=== PATIENT | male | born 1940 | race African-American/Black ===

== ENCOUNTER 2017-01-02 09:20 | Emergency (ER) | payer MEDICARE, MEDICAID ==
[~2017-01-02] VITALS: Ht 172.7 cm; Wt 70.0 kg
[~2017-01-02 09:20] MED LIST: TAMS0.4C32 PO
[2017-01-02] MEDS ORDERED: OxyCODONE HCL/ACETAMINOPHEN 5-325 MG TABLET PO ONE (11:30)
[2017-01-02] MEDS ORDERED: KETOROLAC TROMETHAMINE 60 MG/2 ML VIAL IM ONE (11:30)
[2017-01-02 12:51] VITALS: BP 132/84
== END 2017-01-02 14:11 | disposition home or self-care (01) ==
LOC: EMS 09:26
DX: M54.41 Lumbago with sciatica, right side (principal); E11.9 Type 2 diabetes mellitus without complications; I10 Essential (primary) hypertension; Z88.8 Allergy status to other drugs, medicaments and biological substances
CPT/HCPCS: 96372; 99283; J1885

== ENCOUNTER 2017-02-24 19:10 | Emergency (ER) | payer MEDICARE, MEDICAID ==
[~2017-02-24] VITALS: Ht 172.7 cm; Wt 63.6 kg
[2017-02-24 21:54] LABS: APPEARANCE,URINE CLEAR (CLEAR); GLUCOSE, URINE (UA) NEGATIVE (NEGATIVE); KETONES,URINE NEGATIVE (NEGATIVE); LEUKOCYTE ESTERASE ,URINE NEGATIVE (NEGATIVE); OCCULT BLOOD,URINE NEGATIVE (NEGATIVE); PROTEIN,URINE NEGATIVE (NEGATIVE)
[2017-02-24 21:56] LABS: ADD UA MICROSCOPIC NO
[2017-02-24] MEDS ORDERED: CefTRIAXone SODIUM 1 GM/VIAL IM ONE (22:00)
[2017-02-24] MEDS ORDERED: LIDOCAINE HCL/PF 1% 2 ML VIAL IM ONE (22:00)
[2017-02-24] MEDS ORDERED: AZITHROMYCIN 250 MG TABLET PO ONE (22:00)
[2017-02-24 22:04] VITALS: BP 149/88
== END 2017-02-24 22:10 | disposition home or self-care (01) ==
LOC: EMS 19:11
DX: K40.90 Unilateral inguinal hernia, without obstruction or gangrene, not specified as recurrent (principal); N50.812 Left testicular pain; N34.2 Other urethritis; E11.9 Type 2 diabetes mellitus without complications; I10 Essential (primary) hypertension; Z76.0 Encounter for issue of repeat prescription; Z91.018 Allergy to other foods
CPT/HCPCS: 81003; 96372; 99284; J0696; J3490

== ENCOUNTER 2017-04-10 20:30 | Emergency (ER) | payer MEDICARE, MEDICAID ==
[~2017-04-10] VITALS: Ht 172.7 cm; Wt 63.6 kg
[2017-04-10 21:20] LABS: APPEARANCE,URINE CLEAR (CLEAR); GLUCOSE, URINE (UA) NEGATIVE (NEGATIVE); KETONES,URINE TRACE mg/dL (NEGATIVE); LEUKOCYTE ESTERASE ,URINE NEGATIVE (NEGATIVE); OCCULT BLOOD,URINE NEGATIVE (NEGATIVE); PROTEIN,URINE NEGATIVE (NEGATIVE)
[2017-04-10 21:22] LABS: ADD UA MICROSCOPIC NO
[2017-04-11] MEDS ORDERED: HYDROCODONE/ACETAMINOPHEN 5-325 MG TABLET PO ONE (01:00)
[2017-04-11 01:33] VITALS: BP 154/87
== END 2017-04-11 01:40 | disposition home or self-care (01) ==
LOC: EMS 20:34
DX: M54.5 Low back pain (principal); G89.29 Other chronic pain; H92.09 Otalgia, unspecified ear; E11.9 Type 2 diabetes mellitus without complications; I10 Essential (primary) hypertension; Z95.0 Presence of cardiac pacemaker; Z91.018 Allergy to other foods
CPT/HCPCS: 99283

== ENCOUNTER 2017-04-18 18:31 | Emergency (ER) | payer MEDICARE, MEDICAID ==
[~2017-04-18] VITALS: Ht 172.7 cm; Wt 67.3 kg
[2017-04-18] MEDS ORDERED: TRAM50TA4 PO (18:43)
[2017-04-18] MEDS: HYDROCODONE/ACETAMINOPHEN 10-325 MG TABLET PO ONE (19:30)
[2017-04-18 20:15] VITALS: BP 149/83
== END 2017-04-18 20:18 | disposition home or self-care (01) ==
LOC: EMS 18:32
DX: G89.29 Other chronic pain (principal); M54.5 Low back pain; I10 Essential (primary) hypertension; E11.9 Type 2 diabetes mellitus without complications; M79.606 Pain in leg, unspecified
CPT/HCPCS: 99283

== ENCOUNTER 2017-05-01 11:07 | Emergency (ER) | payer MEDICARE, MEDICAID ==
[~2017-05-01] VITALS: Ht 172.7 cm; Wt 68.2 kg
[~2017-05-01 11:07] MED LIST changes: +TRAM50TA4 PO
[2017-05-01 13:59] VITALS: BP 160/76
== END 2017-05-01 14:03 | disposition home or self-care (01) ==
LOC: EMS 11:09
DX: Z00.00 Encounter for general adult medical examination without abnormal findings (principal); Z02.89 Encounter for other administrative examinations; F11.10 Opioid abuse, uncomplicated; E11.9 Type 2 diabetes mellitus without complications; I10 Essential (primary) hypertension; Z91.018 Allergy to other foods
CPT/HCPCS: 71020; 99284

== ENCOUNTER 2017-05-23 09:53 | Emergency (ER) | payer MEDICARE, MEDICAID ==
[~2017-05-23] VITALS: Ht 172.7 cm; Wt 69.5 kg
[2017-05-23 11:47] VITALS: BP 134/89
[2017-05-23 11:51] LABS: APPEARANCE,URINE CLEAR (CLEAR); GLUCOSE, URINE (UA) NEGATIVE (NEGATIVE); KETONES,URINE NEGATIVE (NEGATIVE); LEUKOCYTE ESTERASE ,URINE NEGATIVE (NEGATIVE); OCCULT BLOOD,URINE NEGATIVE (NEGATIVE); PROTEIN,URINE NEGATIVE (NEGATIVE)
[2017-05-23 12:03] LABS: ADD UA MICROSCOPIC NO
[2017-05-23] MEDS ORDERED: LEVOFLOXACIN 500 MG TABLET PO ONE (12:30)
== END 2017-05-23 12:43 | disposition home or self-care (01) ==
LOC: EMS 09:55
DX: N34.2 Other urethritis (principal); B86 Scabies; E11.9 Type 2 diabetes mellitus without complications; I10 Essential (primary) hypertension; Z95.0 Presence of cardiac pacemaker; Z91.018 Allergy to other foods
CPT/HCPCS: 99283

== ENCOUNTER 2017-06-15 19:54 | Emergency (ER) | payer MEDICARE, MEDICAID ==
[~2017-06-15] VITALS: Ht 172.7 cm; Wt 70.0 kg
[2017-06-15] MEDS ORDERED: KETOROLAC TROMETHAMINE 60 MG/2 ML VIAL IM ONE (21:00)
[2017-06-15 21:26] VITALS: BP 148/94
== END 2017-06-15 21:30 | disposition home or self-care (01) ==
LOC: EMS 19:57
DX: M62.830 Muscle spasm of back (principal); G89.29 Other chronic pain; E11.9 Type 2 diabetes mellitus without complications; I10 Essential (primary) hypertension; Z95.0 Presence of cardiac pacemaker; Z91.018 Allergy to other foods
CPT/HCPCS: 99282; J1885

== ENCOUNTER 2018-12-25 20:26 | Emergency (ER) | payer MEDICAID, MEDICARE ==
[~2018-12-25] VITALS: Ht 172.7 cm; Wt 60.9 kg
[2018-12-25] MEDS ORDERED: CLON-570 PO (20:35)
[2018-12-25] MEDS ORDERED: GABA-529 PO (20:35)
[2018-12-25] MEDS ORDERED: HYDR-4031 PO (20:35)
[2018-12-25] MEDS ORDERED: TAMS0.4C32 PO (20:35)
[2018-12-25 20:53] LABS: GLUCOSE,POINT OF CARE 96 MG/DL (70-110)
[2018-12-25] MEDS ORDERED: CloNIDine HCL 0.2 MG TABLET PO ONE (21:45)
[2018-12-25] MEDS ORDERED: HYDROCODONE/ACETAMINOPHEN 5-325 MG TABLET PO ONE (21:45)
[2018-12-25 22:03] LABS: BASOPHILS % (AUTO) 0.4 % (0.0-2.0); EOSINOPHILS % (AUTO) 0.6 % (1.0-6.0); HEMATOCRIT 38.9 % (41-53); LYMPHOCYTES # (AUTO) 1.7 K/uL (1.0-4.8); LYMPHOCYTES % (AUTO) 26.4 % (22.0-44.0); MEAN CORPUSCULAR HEMOGLOBIN 30.9 pg (26.0-34.0); MEAN CORPUSCULAR HGB CONC 33.4 G/dL (31.0-37.0); MEAN CORPUSCULAR VOLUME 93 fL (80-100); MONOCYTES # (AUTO) 0.7 K/uL (0.1-1.0); MONOCYTES % (AUTO) 10.5 % (2.0-9.0); NEUTROPHILS # (AUTO) 4.1 K/uL (1.8-7.7); NEUTROPHILS % (AUTO) 62.1 % (40.0-70.0); PLATELET COUNT (AUTO) 212 K/uL (150-450); RED CELL DISTRIBUTION WIDTH 14.9 % (11.5-14.5)
[2018-12-25 22:17] LABS: ANION GAP 7 mmol/L (8-16); CALCIUM, TOTAL 8.7 mg/dL (8.8-10.5); CARBON DIOXIDE 27 mmol/L (22-29); CHLORIDE 107 mmol/L (98-107); CREATININE 0.95 mg/dL (0.60-1.30); GLUCOSE,RANDOM 118 mg/dL (70-110); POTASSIUM 3.5 mmol/L (3.5-5.1); SODIUM SERUM 141 mmol/L (136-145); UREA NITROGEN, BLOOD 21 mg/dL (7-18)
[2018-12-25 22:22] LABS: GLOMERULAR FILTR. RATE CALC > 60 mL/min (>60)
[2018-12-25 22:51] LABS: ALANINE AMINOTRANSFERASE 58 U/L (12-78); ALBUMIN 2.9 g/dL (3.4-5.0); ALKALINE PHOSPHATASE 82 U/L (46-116); ASPARTATE AMINOTRANSFERASE 56 U/L (15-37); BILIRUBIN,TOTAL 0.4 mg/dL (0.1-1.0); TOTAL PROTEIN, SERUM 7.2 g/dL (6.4-8.2)
[2018-12-26] MEDS ORDERED: KETOROLAC TROMETHAMINE 60 MG/2 ML VIAL IM ONE (00:45)
[2018-12-26 01:13] VITALS: BP 161/88
== END 2018-12-26 01:15 | disposition home or self-care (01) ==
LOC: EMS 20:27
DX: G89.29 Other chronic pain (principal); M54.2 Cervicalgia; I10 Essential (primary) hypertension; E11.9 Type 2 diabetes mellitus without complications; Z88.8 Allergy status to other drugs, medicaments and biological substances; Z79.899 Other long term (current) drug therapy
CPT/HCPCS: 36415; 80053; 82962; 84484; 85025; 96372; 99283; J1885

== ENCOUNTER 2019-02-05 00:01 | Emergency (ER) | payer MEDICARE, MEDICAID ==
[~2019-02-05] VITALS: Ht 172.7 cm; Wt 60.9 kg
[~2019-02-05 00:01] MED LIST changes: +CLON-570 PO; +GABA-529 PO; +HYDR-4031 PO; -TRAM50TA4 PO
[2019-02-05 03:29] VITALS: BP 158/89
== END 2019-02-05 03:47 | disposition home or self-care (01) ==
LOC: EMS 00:01
DX: M54.2 Cervicalgia (principal); M54.9 Dorsalgia, unspecified; F11.20 Opioid dependence, uncomplicated; E11.9 Type 2 diabetes mellitus without complications; I10 Essential (primary) hypertension; F12.90 Cannabis use, unspecified, uncomplicated; Z79.899 Other long term (current) drug therapy; Z91.018 Allergy to other foods; Z59.0 Homelessness

== ENCOUNTER 2019-02-09 11:15 | Emergency (ER) | payer MEDICARE, MEDICAID ==
[~2019-02-09] VITALS: Ht 162.6 cm; Wt 59.1 kg
[2019-02-09 13:27] LABS: APPEARANCE,URINE CLEAR (CLEAR); BILIRUBIN,URINE NEGATIVE (NEGATIVE); GLUCOSE, URINE (UA) NEGATIVE (NEGATIVE); KETONES,URINE NEGATIVE (NEGATIVE); LEUKOCYTE ESTERASE ,URINE NEGATIVE (NEGATIVE); NITRATE,URINE NEGATIVE (NEGATIVE); OCCULT BLOOD,URINE TRACE (NEGATIVE); PROTEIN,URINE NEGATIVE (NEGATIVE)
[2019-02-09 13:45] LABS: BACTERIA,URINE None Seen /HPF (None Seen); SQUAMOUS EPITHELIAL CELL,UR Rare /LPF (None Seen); WBC,URINE None Seen /HPF (0-5)
[2019-02-09 14:46] VITALS: BP 125/81
== END 2019-02-09 14:51 | disposition home or self-care (01) ==
LOC: EMS 11:16
DX: R33.9 Retention of urine, unspecified (principal); R10.30 Lower abdominal pain, unspecified; F11.20 Opioid dependence, uncomplicated; E11.9 Type 2 diabetes mellitus without complications; I10 Essential (primary) hypertension; I49.9 Cardiac arrhythmia, unspecified; G89.29 Other chronic pain; F12.90 Cannabis use, unspecified, uncomplicated; Z95.0 Presence of cardiac pacemaker; Z79.899 Other long term (current) drug therapy; Z91.018 Allergy to other foods
CPT/HCPCS: 51702; 74176

== ENCOUNTER 2019-05-08 19:56 | Emergency (ER) | payer MEDICARE, MEDICAID ==
[~2019-05-08] VITALS: Ht 172.7 cm; Wt 60.5 kg
[2019-05-08 22:21] VITALS: BP 135/72
[2019-05-08] MEDS ORDERED: IBUPROFEN 600 MG TABLET PO ONE (22:45)
[2019-05-08] MEDS ORDERED: AMOX TR/POT CLAV 875 MG/125 MG TABLET PO ONE (22:45)
== END 2019-05-08 23:33 | disposition home or self-care (01) ==
LOC: EMS 20:00
DX: M79.641 Pain in right hand (principal); M79.10 Myalgia, unspecified site; R68.2 Dry mouth, unspecified; E11.9 Type 2 diabetes mellitus without complications; I10 Essential (primary) hypertension; F12.90 Cannabis use, unspecified, uncomplicated; F11.90 Opioid use, unspecified, uncomplicated; Z79.899 Other long term (current) drug therapy; Z91.018 Allergy to other foods

== ENCOUNTER 2019-05-09 22:14 | Emergency (ER) | payer MEDICARE, MEDICAID ==
[~2019-05-09] VITALS: Ht 172.7 cm; Wt 59.1 kg
[2019-05-10 03:00] VITALS: BP 149/77
== END 2019-05-10 03:26 | disposition home or self-care (01) ==
LOC: EMS 22:15
DX: R39.81 Functional urinary incontinence (principal); E11.9 Type 2 diabetes mellitus without complications; I10 Essential (primary) hypertension; G89.29 Other chronic pain; M54.9 Dorsalgia, unspecified; F11.90 Opioid use, unspecified, uncomplicated; F12.90 Cannabis use, unspecified, uncomplicated; Z91.018 Allergy to other foods; Z95.0 Presence of cardiac pacemaker

== ENCOUNTER 2019-12-25 19:52 | Emergency (ER) | payer MEDICARE, MEDICAID ==
[~2019-12-25] VITALS: Ht 172.7 cm; Wt 58.8 kg
[~2019-12-25 19:52] MED LIST changes: -CLON-570 PO; +CLON0.1T83 PO; +TAMS-13 PO; -TAMS0.4C32 PO
[2019-12-25] MEDS ORDERED: SODIUM CHLORIDE 0.9% 1,000 ML IV ONE (21:15)
[2019-12-25 21:43] LABS: APPEARANCE,URINE CLEAR (CLEAR); BILIRUBIN,URINE NEGATIVE (NEGATIVE); GLUCOSE, URINE (UA) NEGATIVE (NEGATIVE); KETONES,URINE NEGATIVE (NEGATIVE); LEUKOCYTE ESTERASE ,URINE NEGATIVE (NEGATIVE); NITRATE,URINE NEGATIVE (NEGATIVE); OCCULT BLOOD,URINE NEGATIVE (NEGATIVE); PH,URINE 5.5 (5.0-8.0); PROTEIN,URINE NEGATIVE (NEGATIVE); UROBILINOGEN,URINE 0.2 mg/dL (<=1.0)
[2019-12-25 22:20] LABS: BASOPHILS % (AUTO) 0.2 % (0.0-2.0); EOSINOPHILS % (AUTO) 0.6 % (1.0-6.0); HEMATOCRIT 39.5 % (41-53); HEMOGLOBIN 13.2 g/dL (13.5-17.5); LYMPHOCYTES # (AUTO) 1.3 K/uL (1.0-4.8); LYMPHOCYTES % (AUTO) 15.9 % (22.0-44.0); MEAN CORPUSCULAR HGB CONC 33.5 G/dL (31.0-37.0); MEAN CORPUSCULAR VOLUME 90 fL (80-100); MONOCYTES # (AUTO) 0.6 K/uL (0.1-1.0); MONOCYTES % (AUTO) 7.9 % (2.0-9.0); NEUTROPHILS # (AUTO) 6.2 K/uL (1.8-7.7); NEUTROPHILS % (AUTO) 75.4 % (40.0-70.0); PLATELET COUNT (AUTO) 190 K/uL (150-450)
[2019-12-25 22:27] LABS: ANION GAP 9 mmol/L (8-16); CALCIUM, TOTAL 9.1 mg/dL (8.8-10.5); CARBON DIOXIDE 26 mmol/L (22-29); CHLORIDE 100 mmol/L (98-107); CREATININE 1.18 mg/dL (0.60-1.30); GLOMERULAR FILTR. RATE CALC > 60 mL/min (>60); GLUCOSE,RANDOM 99 mg/dL (70-110); POTASSIUM 4.3 mmol/L (3.5-5.1); SODIUM SERUM 135 mmol/L (136-145); UREA NITROGEN, BLOOD 21 mg/dL (7-18)
[2019-12-25 22:32] LABS: ALANINE AMINOTRANSFERASE 60 U/L (12-78); ALBUMIN 3.6 g/dL (3.4-5.0); ALKALINE PHOSPHATASE 98 U/L (46-116); ASPARTATE AMINOTRANSFERASE 48 U/L (15-37); BILIRUBIN,TOTAL 0.7 mg/dL (0.1-1.0); LIPASE 50 U/L (73-393); TOTAL PROTEIN, SERUM 7.8 g/dL (6.4-8.2)
[2019-12-26] VITALS: BP 125/88
== END 2019-12-26 01:52 | disposition home or self-care (01) ==
LOC: EMS 19:55
DX: K52.9 Noninfective gastroenteritis and colitis, unspecified (principal); E11.9 Type 2 diabetes mellitus without complications; I10 Essential (primary) hypertension; G89.29 Other chronic pain; F11.90 Opioid use, unspecified, uncomplicated; F12.90 Cannabis use, unspecified, uncomplicated; Z79.899 Other long term (current) drug therapy; Z95.0 Presence of cardiac pacemaker; Z98.890 Other specified postprocedural states; Z91.018 Allergy to other foods
CPT/HCPCS: 36415; 80053; 81003; 83690; 85025; 99283; J7030

== ENCOUNTER 2020-03-11 13:29 | Emergency (ER) | payer MEDICARE, MEDICAID ==
[~2020-03-11] VITALS: Ht 172.7 cm; Wt 59.1 kg
[2020-03-11 13:32] VITALS: BP 133/82
== END 2020-03-11 15:10 | disposition left against medical advice (07) ==
LOC: EMS 13:36
DX: R21 Rash and other nonspecific skin eruption (principal); Z53.21 Procedure and treatment not carried out due to patient leaving prior to being seen by health care provider

== ENCOUNTER 2020-06-08 16:07 | Emergency (ER) | payer MEDICARE, MEDICAID ==
[~2020-06-08] VITALS: Ht 177.8 cm; Wt 72.7 kg
[~2020-06-08 16:07] MED LIST changes: +GABA-1216 PO; -GABA-529 PO
[2020-06-08] MEDS ORDERED: ACETAMINOPHEN 500 MG TABLET PO ONE (16:30)
[2020-06-08 17:58] VITALS: BP 142/66
== END 2020-06-08 18:18 | disposition home or self-care (01) ==
LOC: EMS 16:11
DX: S09.90XA Unspecified injury of head, initial encounter (principal); F15.10 Other stimulant abuse, uncomplicated; Z59.0 Homelessness; F12.90 Cannabis use, unspecified, uncomplicated; F11.90 Opioid use, unspecified, uncomplicated; E11.9 Type 2 diabetes mellitus without complications; I10 Essential (primary) hypertension; Z88.8 Allergy status to other drugs, medicaments and biological substances; Z91.018 Allergy to other foods; V09.9XXA Pedestrian injured in unspecified transport accident, initial encounter; Y93.89 Activity, other specified; Y92.89 Other specified places as the place of occurrence of the external cause; Y99.8 Other external cause status

== ENCOUNTER 2021-03-01 12:58 | Emergency (ER) | payer MEDICARE, MEDICAID ==
[~2021-03-01] VITALS: Ht 172.7 cm; Wt 55.9 kg
[~2021-03-01 12:58] MED LIST changes: +CLON0.1T2 PO; -CLON0.1T83 PO
[2021-03-01 13:12] VITALS: BP 156/72
[2021-03-01 13:30] LABS: GLUCOSE,POINT OF CARE 144 MG/DL (70-110)
== END 2021-03-01 17:11 | disposition home or self-care (01) ==
LOC: EMS 13:04
DX: R06.02 Shortness of breath (principal); M79.10 Myalgia, unspecified site; Z59.0 Homelessness
CPT/HCPCS: 99282; 99283